=== PATIENT | female | born 1950 | race Caucasian/White ===

== ENCOUNTER 2017-11-10 11:54 | Inpatient (IN) | payer OTHER ==
[~2017-11-10] VITALS: Ht 167.6 cm; Wt 75.1 kg
[~2017-11-10 11:54] MED LIST: Ambien PO; CELEXA40 MG PO; Folvite PO; Keflex PO; Mag-Ox PO; NOHOMEMEDS; NORVASC10 MG PO; PROTONIX40 MG PO; THERAGRAN-M PR1 EAC1 PO; ZOLOFT100 MG PO
[2017-11-10 12:38] LABS: HEMATOCRIT 37.9 % (36.0-46.0); MCHC 35.6 G/DL (30.0-36.0); MCV 86.9 FL (83-99); MEAN PLAT.VOLUME 10.5 uM^3 (9.5-12.4); PLATELET COUNT 222 K/uL (156-360); RBC DIS.WIDTH-CV 12.5 % (11.8-14.6); RBC DIS.WIDTH-SD 40.1 % (39-53); RED BLOOD COUNT 4.36 M/uL (3.80-5.20); WHITE BLOOD COUNT 10.4 K/uL (4.1-10.2)
[2017-11-10 12:56] LABS: CHLORIDE 93 mEq/L (99-109); POTASSIUM 3.6 mEq/L (3.7-5.4); SODIUM 127 mEq/L (136-147)
[2017-11-10 12:57] LABS: GLUCOSE 101 mg/dL (70-99)
[2017-11-10 12:59] LABS: ANION GAP 12 MEQ/L (2-14)
[2017-11-10 13:01] LABS: GFR ESTIMATE (CALCULATED) > 59 mL/min/
[2017-11-10 13:02] LABS: UREA NITROGEN (BUN) 8 mg/dL (9-23)
[2017-11-10 14:31] LABS: ADD MIUA? YES; BILIRUBIN SMALL; BLOOD NEGATIVE; COLOR YELLOW ((YELLOW)); GLUCOSE (STRIP) NEGATIVE; KETONES 20; LEUKOCYTES SMALL; NITRITE NEGATIVE; PROTEIN (STRIP) 100; SPECIFIC GRAVITY 1.019 (1.000-1.030); UROBILINOGEN 0.2 MG/DL (0.2-1.0)
[2017-11-10 14:35] LABS: BACTERIA NONE SEEN /HPF; EPITHELIAL CELLS RARE /HPF; MUCUS TRACE /LPF; UCUL ADDED? NO; WHITE BLOOD CELLS 0-5 /HPF (0-5)
[2017-11-10] MEDS ORDERED: SPIRIVA RESPIMAT4 GM IH (15:40)
[2017-11-10] MEDS ORDERED: GUAIFENESIN200 M2 PO (15:44)
[2017-11-10] MEDS ORDERED: KONSYL1 EACH PO (15:46)
[2017-11-10] MEDS ORDERED: MONTELUKAST SOD10 MG PO (15:47)
[2017-11-10] MEDS ORDERED: LISINOPRIL20 MG PO (15:49)
[2017-11-10] MEDS ORDERED: MIRTAZAPINE15 MG PO (15:50)
[2017-11-10] MEDS ORDERED: LORATADINE10 M2 PO (15:51)
[2017-11-10] MEDS ORDERED: CALCIUM 500 MG1 EACH PO (15:54)
[2017-11-10] MEDS ORDERED: SYMBICORT60 INHALAT IH (15:54)
[2017-11-10] MEDS ORDERED: LO-DOSE ASPIRIN81 M2 PO (15:55)
[2017-11-10] MEDS ORDERED: VENTOLIN HFA18 GM IH (15:56)
[2017-11-10 16:02] VITALS: BP 139/75
[2017-11-10 20:01] VITALS: BP 148/80
[2017-11-11] VITALS (7 sets, daily range): BP systolic 100–167; BP diastolic 50–81
[2017-11-11 07:17] LABS: ANION GAP 8 MEQ/L (2-14); CHLORIDE 99 MEQ/L (99-109); GFR ESTIMATE (CALCULATED) > 59 mL/min/; GLUCOSE 107 mg/dL (70-99); POTASSIUM 3.5 MEQ/L (3.7-5.4); SAMPLE HEMOLYSIS CHECK 0; SAMPLE ICTERIC CHECK 0; SAMPLE LIPEMIA CHECK 0; SODIUM 128 MEQ/L (136-147); UREA NITROGEN (BUN) 9 mg/dL (9-23)
[2017-11-11 15:48] LABS: MAGNESIUM 1.8 mg/dl (1.3-2.7)
[2017-11-11 16:25] LABS: ANION GAP 5 MEQ/L (2-14); CHLORIDE 100 MEQ/L (99-109); GFR ESTIMATE (CALCULATED) > 59 mL/min/; GLUCOSE 107 mg/dL (70-99); POTASSIUM 3.7 MEQ/L (3.7-5.4); SAMPLE HEMOLYSIS CHECK 0; SAMPLE ICTERIC CHECK 0; SAMPLE LIPEMIA CHECK 0; SODIUM 128 MEQ/L (136-147); UREA NITROGEN (BUN) 9 mg/dL (9-23)
[2017-11-12 03:56] VITALS: BP 132/65
[2017-11-12 06:47] LABS: ANION GAP 11 MEQ/L (2-14); CHLORIDE 106 MEQ/L (99-109); GFR ESTIMATE (CALCULATED) > 59 mL/min/; POTASSIUM 4.1 MEQ/L (3.7-5.4); SAMPLE HEMOLYSIS CHECK 0; SAMPLE ICTERIC CHECK 0; SAMPLE LIPEMIA CHECK 0; UREA NITROGEN (BUN) 9 mg/dL (9-23)
[2017-11-12 06:56] LABS: GLUCOSE 167 mg/dL (70-99); SODIUM 137 MEQ/L (136-147)
[2017-11-12 07:50] VITALS: BP 164/84
[2017-11-12 09:03] LABS: HEMATOCRIT 34.3 % (36.0-46.0); MCHC 34.4 G/DL (30.0-36.0); MCV 87.3 FL (83-99); MEAN PLAT.VOLUME 10.8 uM^3 (9.5-12.4); PLATELET COUNT 230 K/uL (156-360); RBC DIS.WIDTH-CV 12.6 % (11.8-14.6); RBC DIS.WIDTH-SD 40.5 % (39-53); RED BLOOD COUNT 3.93 M/uL (3.80-5.20); WHITE BLOOD COUNT 8.7 K/uL (4.1-10.2)
[2017-11-12 11:28] VITALS: BP 140/72
[2017-11-12 16:23] VITALS: BP 176/81
[2017-11-12 19:03] VITALS: BP 149/85
[2017-11-12 23:53] VITALS: BP 155/86
[2017-11-13 03:31] VITALS: BP 137/62
[2017-11-13 06:44] LABS: HEMATOCRIT 32.8 % (36.0-46.0); MCH 29.4 PG (29.0-34.0); MCHC 33.8 G/DL (30.0-36.0); MEAN PLAT.VOLUME 10.3 uM^3 (9.5-12.4); PLATELET COUNT 253 K/uL (156-360); RBC DIS.WIDTH-CV 12.9 % (11.8-14.6); RED BLOOD COUNT 3.77 M/uL (3.80-5.20); WHITE BLOOD COUNT 14.8 K/uL (4.1-10.2)
[2017-11-13 07:08] LABS: ANION GAP 10 MEQ/L (2-14); CHLORIDE 107 MEQ/L (99-109); GFR ESTIMATE (CALCULATED) > 59 mL/min/; GLUCOSE 160 mg/dL (70-99); SAMPLE HEMOLYSIS CHECK 0; SAMPLE ICTERIC CHECK 0; SAMPLE LIPEMIA CHECK 0; SODIUM 139 MEQ/L (136-147); UREA NITROGEN (BUN) 11 mg/dL (9-23)
[2017-11-13 07:46] VITALS: BP 144/69
[2017-11-13 11:51] VITALS: BP 156/85
[2017-11-13] MEDS ORDERED: NICOTINE PATCH1 EAC2 TD (15:21)
[2017-11-13] MEDS ORDERED: XOPENEX1.25 MG/0. AEROSOL (15:21)
[2017-11-13 16:17] VITALS: BP 156/85
[2017-11-13 19:20] VITALS: BP 151/80
== END 2017-11-13 21:24 | disposition short-term general hospital (02) | DRG 191 ==
LOC: EME 11:54 → 5SOUTH 13:24 → EDOF 13:24 → ENRESERV 13:25 → 5SOUTH 15:06
PROVIDERS: Emergency Medicine; Internal Medicine
DX: J44.1 Chronic obstructive pulmonary disease with (acute) exacerbation (principal); E87.1 Hypo-osmolality and hyponatremia; J20.9 Acute bronchitis, unspecified; E78.5 Hyperlipidemia, unspecified; R09.02 Hypoxemia; E87.6 Hypokalemia; F17.200 Nicotine dependence, unspecified, uncomplicated; I10 Essential (primary) hypertension; R05 Cough; Z71.6 Tobacco abuse counseling; Z86.73 Personal history of transient ischemic attack (TIA), and cerebral infarction without residual deficits
CPT/HCPCS: 71010; 71250; 80048; 80048 91; 81003; 82533 91; 83605; 83735; 83930; 83935; 84300; 84443; 85027; 87040; 87070; 87205; 87449; 87502; 94640; 94640 76; 94799; 99202; 99281; 99284; J0696; J1650; J1956; J2920; J7030